=== PATIENT | female | born 1980 | race American Indian/Alaskan Native ===

== ENCOUNTER 2017-05-10 23:44 | Emergency (ER) | payer BC ==
[2017-05-11 00:21] VITALS: TEMP 98.3
[2017-05-11] MEDS ORDERED: Oxycodone/Acetaminophen 5/325 mg Tab PO STA (01:11)
[2017-05-11] MEDS ORDERED: Oxycodone/Acetaminophen 5/325 mg Tab ONE (01:35)
--- NOTE | 2017-05-11 02:57 | C.PDOC ---
History Of Present Illness 36 year old female presents to the ER with a complaint of right ankle pain and swelling for the past few days. Patient report it hurt when ambulating. Denies weakness, numbness, recent injury, history of fracture, or surgical history. Time Seen by Provider: 05/11/17 00:23 Chief Complaint (Nursing): Lower Extremity Problem/Injury History Per: Patient History/Exam Limitations: no limitations Onset/Duration Of Symptoms: Days Current Symptoms Are (Timing): Still Present Recent travel outside of the [place]: No Past Medical History Reviewed: Historical Data, Nursing Documentation, Vital Signs Vital Signs: Last Vital Signs Temp 98.3 F 05/11/17 00:17 Pulse 80 05/11/17 03:19 Resp 14 05/11/17 03:19 BP 120/80 05/11/17 03:19 Pulse Ox 98 05/11/17 03:41 Surgical History: Cholecystectomy (2003) Family History: States: Unknown Family Hx - Social History Hx Tobacco Use: No Hx Alcohol Use: No Hx Substance Use: No - Immunization History Hx Influenza Vaccination: Yes Hx Pneumococcal Vaccination: No Review Of Systems Musculoskeletal: Positive for: Foot Pain Neurological: Negative for: Weakness, Numbness Physical Exam - Physical Exam Appears: Non-toxic, No Acute Distress Skin: Normal Color, Warm, Dry Head: Atraumatic, Normacephalic Eye(s): bilateral: Normal Inspection Extremity: Capillary Refill (<2 seconds), No Deformity, Swelling (Mild to moderate to right lateral malleolus and dorsum of right foot.) Pulses: Left Dorsalis Pedis: Normal, Right Dorsalis Pedis: Normal Neurological/Psych: Oriented x3, Normal Speech, Normal Motor, Normal Sensation Gait: Steady ED Course And Treatment O2 Sat by Pulse Oximetry: 98 (Room air) Pulse Ox Interpretation: Normal - Other Rad Right ankle x-ray X-Ray: Interpreted by Me, Viewed By Me Interpretation: No acute fractures or dislocations. Right foot x-ray X-Ray: Interpreted by Me, Viewed By Me Interpretation: No acute fractures or dislocations. Medical Decision Making Medical Decision Making: Right ankle and right foot x-ray ordered, results were negative. Percocet, prednisone, and indocin administered, patient reports improvement of symptoms. Will discharge home with Rx and instructions to follow up with PMD. Crutches offered but patient refuses. Disposition - Disposition Referrals: [facility] [Outside] Nolvia Henderson DPM [Staff Provider] - Disposition: HOME/ ROUTINE Disposition Time: 02:58 Condition: GOOD Additional Instructions: Your xrays are negative for fracture or foreign body. There is no signs of cellulitis and this is most likely gout as there is a family history of it. Follow up with the Radiotelegraph Operator/clinic within 2-3 days without fail. Return if worsened. Prescriptions: Indomethacin [Indocin] 25 mg PO BID #40 cap oxyCODONE/Acetaminophen [Percocet 5/325 mg Tab] 1 tab PO QID PRN #7 tab PRN Reason: Pain, Severe (8-10) predniSONE [Prednisone] 20 mg PO BID #10 tab Instructions: Gout (ED) Forms: [facility] ([place]), Work Excuse - Clinical Impression Clinical Impression: Gouty arthritis, Joint pain - PA / APPLIED PSYCHOLOGY PROFESSOR / Resident Statement MD/DO has reviewed & agrees with the documentation as recorded. - Scribe Statement The provider has reviewed the documentation as recorded by the Scribopal Caicedo All medical record entries made by the Lisa were at my direction and personally dictated by me. I have reviewed the chart and agree that the record accurately reflects my personal performance of the history, physical exam, medical decision making, and the department course for this patient. I have also personally directed, reviewed, and agree with the discharge instructions and disposition.
[2017-05-11 03:19] VITALS: BP 120/80; PULSE 80; RESP 14
[2017-05-11 03:34] VITALS: O2SAT 98
--- NOTE | 2017-05-11 10:00 | RAD ---
PROCEDURE: Right Ankle Radiographs. HISTORY: injury? pain COMPARISON: None FINDINGS: BONES: No acute fracture. Incidentally noted plantar calcaneal spur. JOINTS: Normal. No osteoarthritis. Ankle mortise maintained. Talar dome intact SOFT TISSUES: Normal. OTHER FINDINGS: None. IMPRESSION: No acute fracture.
--- NOTE | 2017-05-11 10:01 | RAD ---
PROCEDURE: Right Foot Radiographs. HISTORY: pain, swelling COMPARISON: None. FINDINGS: BONES: No fracture. Plantar calcaneal spur. JOINTS: Normal. SOFT TISSUES: Normal. OTHER FINDINGS: None. IMPRESSION: No acute fracture
== END 2017-05-11 03:19 | disposition home or self-care (01) ==
LOC: C.ER 23:44 → SUPCPDRO 23:44 → C.ER 05-11 03:19
DX: M10.9 Gout, unspecified (principal); M25.571 Pain in right ankle and joints of right foot

== ENCOUNTER 2017-11-09 19:27 | Emergency (ER) | payer BC ==
[2017-11-09 19:45] VITALS: RESP 20; O2SAT 100
--- NOTE | 2017-11-09 20:39 | C.PDOC ---
History Of Present Illness 37 y/o female with hx dm and possible fibromyalgia c/o swelling and pain to right lateral ankle, anterior left wrist, back and neck pain x 2 days. pt already taking baclofen and naproxen for pain. no cp or sob. no fever or chills. no trauma. pt has had similar symptoms in the past. Time Seen by Provider: 11/09/17 19:54 Chief Complaint (Nursing): Medical Clearance History Per: Patient History/Exam Limitations: no limitations Onset/Duration Of Symptoms: Days (2) Current Symptoms Are (Timing): Still Present Severity: Moderate Reports Recently: Treated By A Physician Past Medical History Reviewed: Historical Data, Nursing Documentation, Vital Signs Vital Signs: Last Vital Signs Temp 97.7 F 11/09/17 20:47 Pulse 98 H 11/09/17 20:47 Resp 20 11/09/17 19:40 BP 122/85 11/09/17 20:47 Pulse Ox 100 11/10/17 05:42 - Medical History PMH: Diabetes, Fibromyalgia Denies: Chronic Kidney Disease Surgical History: Cholecystectomy (2003) Family History: States: Unknown Family Hx - Social History Hx Tobacco Use: No Hx Alcohol Use: Yes Hx Substance Use: No - Immunization History Hx Tetanus Toxoid Vaccination: No Hx Influenza Vaccination: Yes Hx Pneumococcal Vaccination: No Review Of Systems Constitutional: Negative for: Fever, Chills Cardiovascular: Negative for: Chest Pain Respiratory: Negative for: Cough, Shortness of Breath Gastrointestinal: Negative for: Vomiting, Abdominal Pain Musculoskeletal: Positive for: Neck Pain (bilateral trapezius pain), Hand Pain ( left anterior wrist pain), Foot Pain (right ankle pain) Skin: Negative for: Rash Neurological: Negative for: Weakness, Numbness Physical Exam - Physical Exam Appears: Non-toxic, No Acute Distress Skin: Warm, Dry, No Rash Head: Atraumatic, Normacephalic Oral Mucosa: Moist Neck: Trachea Midline, No Midline Cervical Tenderness, Paracervical Tenderness ( bilateral with bilateral trapezius tenderness. ), No Step Off Deformity Chest: No Deformity, No Tenderness Cardiovascular: Rhythm Regular, No Murmur Respiratory: No Decreased Breath Sounds, No Wheezing Gastrointestinal/Abdominal: Soft, No Tenderness Extremity: Swelling (mild to lateral right ankle and left anterior wrist, with from to all joints. ) Pulses: Left Radial: Normal, Right Radial: Normal, Left Dorsalis Pedis: Normal, Right Dorsalis Pedis: Normal Neurological/Psych: Oriented x3, Normal Speech, Normal Cognition, Normal Motor, Normal Sensation ED Course And Treatment O2 Sat by Pulse Oximetry: 100 Medical Decision Making Medical Decision Making: discussed with patient that she should get outpatient workup from a filling hauler weaving; pt to continue baclofen and naproxen; pt an add tylenol and tramdol for severe pain. pt given resource list of rheumatologists. pt understands plan. pt sts she had tests for gout and were neg; neg xrays of right anle in past as well. Disposition Counseled Patient/Family Regarding: Diagnosis, Rx Given - Disposition Referrals: Mason Johnson MD [Staff Provider] - Disposition: HOME/ ROUTINE Disposition Time: 20:43 Condition: GOOD Additional Instructions: Continue taking naproxen and baclofen as prescribed. Take Tramdol for severe pain- not at same time as baclofen- makes you sleepy. Please follow up with Dr Johnson and with a filling hauler weaving for full out patient work up. Prescriptions: traMADol [Ultram] 50 mg PO Q8 #12 tab Instructions: Fibromyalgia, Muscle and Bone Pain (DC) Forms: General Discharge Instructions, [facility] ([place]), Work Excuse - Clinical Impression Clinical Impression: Myalgia
[2017-11-09 20:48] VITALS: BP 122/85; PULSE 98; TEMP 97.7
== END 2017-11-09 20:56 | disposition home or self-care (01) ==
LOC: C.ER 19:27
DX: M79.1 Myalgia (principal)

== ENCOUNTER 2018-03-14 17:09 | Emergency (ER) | payer BC ==
[2018-03-14 17:22] VITALS: BMI 28.6
[2018-03-14 17:23] VITALS: RESP 20; TEMP 98.5; O2SAT 99
[2018-03-14] MEDS ORDERED: Sodium Chloride 0.9% 1,000 ML IV ONE (18:00)
[2018-03-14 18:03] LABS: SQUAMOUS EPITHIAL 5 /hpf (0-5); URINE BACTERIA RARE (<OCC); URINE BILIRUBIN NEGATIVE (NEGATIVE); URINE BLOOD 3+ (NEGATIVE); URINE CLARITY Clear (Clear); URINE COLOR Yellow (YELLOW); URINE GLUCOSE (UA) 3+ mg/dL (Normal); URINE LEUKOCYTE ESTERASE NEG Leu/uL (Negative); URINE PROTEIN NEGATIVE (NEGATIVE); URINE UROBILINOGEN NORMAL mg/dL (0.2-1.0)
[2018-03-14] MEDS ORDERED: Sodium Chloride 0.9% 1,000 ML ONE (18:15)
[2018-03-14 18:16] LABS: BASO % 0.7 % (0.0-2.0); EOS # 0.2 K/uL (0.0-0.7); EOS % 3.6 % (0.0-4.0); HEMOGLOBIN 12.9 g/dL (11.0-16.0); LYMPH # 2.7 K/uL (1.0-4.3); MEAN CELL VOLUME 91.6 fL (81.0-99.0); MEAN CORPUSCULAR HEMOGLOBIN 32.6 pg (27.0-31.0); MEAN CORPUSCULAR HGB CONC 35.6 g/dL (33.0-37.0); MEAN PLATELET VOLUME 8.7 fL (7.2-11.7); MONO # 0.4 K/uL (0.0-0.8); MONO % 5.3 % (0.0-10.0); NEUT # 3.2 K/uL (1.8-7.0); NEUT % 49.4 % (50.0-75.0); RBC 3.95 Mil/uL (3.80-5.20); RED CELL DISTRIBUTION WIDTH 11.8 % (11.5-14.5); WHITE BLOOD COUNT 6.6 K/uL (4.8-10.8)
--- NOTE | 2018-03-14 18:25 | C.PDOC ---
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 Patient states her pain comes and goes feels cramp like rates it at 7/10. Patient also reports vaginal spotting which patient states is similar to her period. Patient's LMP was 02/24, usually her periods are irregular. Patient reports this is the first time she has pain like this. Patient denies fever, chills, vomit, diarrhea, constipation, dysuria, hematuria, vaginal discharge, rash. Time Seen by Provider: 03/14/18 17:26 Chief Complaint (Nursing): Abdominal Pain History Per: Patient History/Exam Limitations: no limitations Onset/Duration Of Symptoms: Hrs (3) Current Symptoms Are (Timing): Still Present Pain Scale Rating Of: 7 Location Of Pain/Discomfort: Diffuse Radiation Of Pain To:: Back, Leg Quality Of Discomfort: Burning Associated Symptoms: Nausea. denies: Vomiting, Diarrhea, Loss Of Appetite, Constipation, Urinary Symptoms Recent travel outside of the [facility]: No Additional History Per: Patient Abnormal Vaginal Bleeding: No Last Menstral Period: 02/24 Past Medical History Reviewed: Historical Data, Nursing Documentation, Vital Signs Vital Signs: Last Vital Signs Temp 98.5 F 03/14/18 17:20 Pulse 94 H 03/14/18 17:20 Resp 20 03/14/18 17:20 BP 117/83 03/14/18 17:20 Pulse Ox 99 03/14/18 17:20 - Medical History PMH: Diabetes, Fibromyalgia, Sexually Transmitted Disease (Gonorrhea) Denies: Chronic Kidney Disease Surgical History: Cholecystectomy (2003) Family History: States: Unknown Family Hx - Social History Hx Tobacco Use: No Hx Alcohol Use: Yes Hx Substance Use: No - Immunization History Hx Tetanus Toxoid Vaccination: No Hx Influenza Vaccination: Yes Hx Pneumococcal Vaccination: No Review Of Systems Constitutional: Negative for: Fever, Chills Cardiovascular: Negative for: Chest Pain Respiratory: Negative for: Shortness of Breath Gastrointestinal: Positive for: Nausea, Abdominal Pain. Negative for: Vomiting, Diarrhea Genitourinary: Positive for: Vaginal Bleeding. Negative for: Dysuria, Hematuria Musculoskeletal: Negative for: Back Pain Skin: Negative for: Rash Neurological: Negative for: Weakness, Numbness, Headache Physical Exam - Physical Exam Appears: Non-toxic, No Acute Distress, Other (mild discomfort due to pain) Skin: Normal Color, Warm, Dry Head: Atraumatic, Normacephalic Eye(s): bilateral: Normal Inspection Oral Mucosa: Moist Neck: Normal ROM, Supple Chest: Symmetrical Cardiovascular: Rhythm Regular Respiratory: Normal Breath Sounds, No Rales, No Rhonchi, No Wheezing Gastrointestinal/Abdominal: Soft, Tenderness (to superficial and deep palpation on RUQ, RLQ and LLQ), Distention (mildly), No Guarding, No Rebound Extremity: Normal ROM, No Tenderness, No Swelling Neurological/Psych: Oriented x3, Normal Speech, Normal Cognition Gait: Steady ED Course And Treatment - Laboratory Results Result Diagrams: 03/14/18 18:13 Lab Interpretation: Normal (+ blood in urine c/w MP) Urine POC: Negative O2 Sat by Pulse Oximetry: 99 (ON RA) Pulse Ox Interpretation: Normal - Radiology CXR: Interpreted by Me CXR Interpretation: Yes: No Acute Disease - Other Rad abd x 2 X-Ray: Interpreted by Me (+FOS, no obstr/FA) Medical Decision Making Medical Decision Making: Plan: * Labs * IV fluids * Toradol 30 mg IVP * UA A/P:mentrual cramps, contipation NSAIDS laxatives Disposition Doctor Will See Patient In The: Office Counseled Patient/Family Regarding: Studies Performed, Diagnosis - Disposition Disposition Time: 18:51 Condition: GOOD Forms: [facility] ([place]) - Clinical Impression Clinical Impression: Abdominal pain, colicky, Menstrual cramps - Scribe Statement The provider has reviewed the documentation as recorded by the Scribopal Corrigan All medical record entries made by the Scribe were at my direction and personally dictated by me. I have reviewed the chart and agree that the record accurately reflects my personal performance of the history, physical exam, medical decision making, and the department course for this patient. I have also personally directed, reviewed, and agree with the discharge instructions and disposition.
[2018-03-14 18:50] LABS: ALB/GLOB RATIO 1.4 (1.0-2.1); ALBUMIN 4.3 g/dL (3.5-5.0); ALT/SGPT 26 U/L (9-52); AST/SGOT 27 U/L (14-36); BLOOD UREA NITROGEN 10 mg/dL (7-17); GFR NON-AFRICAN AMERICAN > 60; LIPASE 67 U/L (23-300)
[2018-03-14 19:05] VITALS: BP 120/79; PULSE 88
--- NOTE | 2018-03-14 19:28 | RAD ---
Date of service: 03/14/2018 PROCEDURE: Radiographs of the chest and abdomen (obstructive series) HISTORY: abd pain COMPARISON: No prior. TECHNIQUE: AP radiograph of the chest, with upright and supine radiographs of the abdomen. FINDINGS: CHEST: Lungs: Clear. Cardiovascular: Normal size heart. No pulmonary vascular congestion. No aortic atherosclerotic calcification present Pleura: No pleural fluid. No pneumothorax. Other findings: None. ABDOMEN AND PELVIS: Bowel: Mild constipation, otherwise unremarkable bowel gas pattern. No evidence of mechanical obstruction. Free air: None. Bones: Unremarkable. Other findings: Surgical clips at the right upper abdomen suggestive of prior cholecystectomy. IMPRESSION: Mild constipation, otherwise unremarkable radiographs of chest and abdomen. No evidence of mechanical bowel obstruction.
== END 2018-03-14 19:05 | disposition home or self-care (01) ==
LOC: C.ER 17:09
DX: R10.31 Right lower quadrant pain (principal); R10.84 Generalized abdominal pain; N94.6 Dysmenorrhea, unspecified; E11.9 Type 2 diabetes mellitus without complications; M79.7 Fibromyalgia
CPT/HCPCS: 74022; 80053; 81001; 83690; 85025; 96361; 96374; 99285; J1885; J7030